=== PATIENT | female | born 1950 | race Caucasian/White ===

== ENCOUNTER 2023-03-17 18:19 | Outpatient (CLI) | payer OTHER, SELFPAY | END 2023-03-17 18:20 | disposition home or self-care (01) | LOC: AMB 03-31 03:11 | PROVIDERS: Visit Provider Family Medicine | DX: T88.6XXA Anaphylactic reaction due to adverse effect of correct drug or medicament properly administered, initial encounter (principal) | CPT/HCPCS: A0425; A0427 ==